=== PATIENT | female | born 1975 | race Caucasian/White ===

== ENCOUNTER → 2018-01-29 | Outpatient (CLI) | payer OTHER ==
--- NOTE | 2018-01-29 16:18 | MAMMOGRAPHY REPORT ---
BILATERAL DIGITAL SCREENING MAMMOGRAM TOMOSYNTHESIS WITH CAD: 01/29/2018 CLINICAL HISTORY: Routine screening. Patient has no complaints. TECHNIQUE: The study was acquired using full field digital technology and interpreted from soft copy. Breast tomosynthesis in addition to standard 2D mammography was performed. Current study was also ev aluated with a Computer Aided Detection (CAD) system. COMPARISON: Comparison is made to exams dated: 11/04/2008 mammogram and 11/02/2008 mammogram. BREAST COMPOSITION: The tissue of both breasts is heterogeneously dense, which may obscure small mass es. FINDINGS: There is a 12 mm focal asymmetry in the approximate 12:00 posterior left breast within the retroglandular fat, was not definitely seen on the 2009 mammogram. Although this could be positional and represent normal fibroglandular tissue, additional spot compression tomosynthesis views and poss ible ultrasound are recommended. There is a possible grouping of calcifications in the 11:00 to 12:0 0 middle one third of the right breast, for which additional spot magnification views are recommended . No other suspicious mass, architectural distortion or cluster of microcalcifications is seen. IMPRESSION: ACR BI-RADS CATEGORY 0: INCOMPLETE EVALUATION: NEED ADDITIONAL IMAGING EVALUATION The 12 mm focal asymmetry in the 12:00 left breast and possible grouping of calcifications in the 11- 12:00 right breast need additional imaging evaluation. The patient will be called to schedule an appointment. Some breast cancers are not detected with mammography. A negative mammographic report should not gary y biopsy if a clinically suggestive mass is present. Tanya Patrick M.D. ay/:01/29/2018 15:25:18 Home Health Caregiver: RT Siddhartha(Leann)(M)(BD), [facility] letter sent: Addl Imaging 0 BI-RADS Code: ACR BI-RADS Category 0: Incomplete Evaluation: Need Additional Imaging Evaluation
== END | disposition home or self-care (01) ==
LOC: C.MAMM 12:25
PROVIDERS: ATTEND Obstetrics & Gynecology
DX: Z12.31 Encounter for screening mammogram for malignant neoplasm of breast (principal); N64.89 Other specified disorders of breast

== ENCOUNTER → 2018-02-07 | Outpatient (CLI) | payer OTHER ==
--- NOTE | 2018-02-07 14:54 | MAMMOGRAPHY REPORT ---
BILATERAL DIGITAL DIAGNOSTIC MAMMOGRAM TOMOSYNTHESIS AND TARGETED LEFT ULTRASOUND: 02/07/2018 CLINICAL HISTORY: Callback from screening mammogram for left breast asymmetry and right breast calcif ications. Family history of breast cancer including her mother who was diagnosed in her late 40s. TECHNIQUE: The study was acquired using full field digital technology and interpreted from soft copy. Breast tomosynthesis in addition to standard 2D mammography was performed. Spot compression left CC and MLO to T and tomosynthesis images and spot magnification right CC and MLO views were obtained. COMPARISON: Comparison is made to exams dated: 01/29/2018 mammogram - [facility], mammogram, and 11/02/2008 mammogram. BREAST COMPOSITION: There are scattered areas of fibroglandular density in both breasts. FINDINGS: Spot magnification views of the right breast demonstrate faint loosely grouped calcifications within the right 12:00 breast. The calcifications are punctate and amorphous on the CC view, and demonstrat e layering on the lateral view consistent with benign milk of calcium. Spot compression views of the left breast demonstrate a persistent 15 mm asymmetry seen within the le ft breast at approximately 12 to 1:00, best seen on the cc view. the asymmetry may have been present on the 2009 exam although there was more fibroglandular tissue seen in this region on the 2009 exam w hich partially obscures the finding therefore it is difficult to confirm stability to the 2009 exam g iven the involutional changes between the current and prior exam. Targeted ultrasound was performed of the left 12 to 1:00 breast in the region of the mammographic asy mmetry. Sonographically normal tissue is seen in this region, without evidence of a mass or other perez spicious sonographic abnormality. Given that the finding may have been present on the 2009 exam, the options of short interval follow-up (in 3-6 months) versus stereotactic biopsy were discussed with t ekta patient. Given that the patient has a family history of breast cancer, I would recommend tissue s ampling to confirm benignity. IMPRESSION: ACR BI-RADS CATEGORY 4: SUSPICIOUS, ULTRASOUND ACR BI-RADS CATEGORY 4: SUSPICIOUS 1. Persistent asymmetry in the left 12 to 1:00 breast, without a suspicious sonographic correlate ev ident. The finding is indeterminate and tomosynthesis stereotactic biopsy is recommended for further evaluation. 2. Grouped calcifications in the right 12:00 breast are compatible with benign milk of calcium. A phone call was made to the physician's office to confirm faxed results were received. The patient has been verbally notified of the results. She tentatively scheduled the biopsy before l eaving the department. Some breast cancers are not detected with mammography. A negative mammographic report should not gary y biopsy if a clinically suggestive mass is present. Marguerite Guerra M.D. ah/:02/07/2018 12:29:22 Fisheries Inspector: RT Kathy(Leann)(M), [facility] letter sent: Abnormal 4/5 OVERALL STUDY BIRADS: 4 Suspicious abnormality
== END | disposition home or self-care (01) ==
LOC: C.MAMM 10:17
PROVIDERS: ATTEND Obstetrics & Gynecology
DX: N64.89 Other specified disorders of breast (principal); R92.1 Mammographic calcification found on diagnostic imaging of breast

== ENCOUNTER → 2018-02-15 | Outpatient (CLI) | payer OTHER ==
--- NOTE | 2018-02-15 10:43 | Discharge Instructions ---
Discharge Instructions Procedure Procedure Date: Feb 15, 2018. Reason for visit: Left Asymm. Discharge Discharge Date: Feb 15, 2018. Discharge Diagnosis: status post breast biopsy Instructions Activity Recommendations: Additional Limitations (see below) Return to School/Work: no limitations Recommended Home Diet: No Limitations Provider Instructions: ACTIVITY RECOMMENDATIONS: * No lifting, pushing, pulling or exercising the affected side for three days. RETURN TO SCHOOL/WORK: * You may return to work/school after the procedure, but do not perform any strenuous activities for 24 to 48 hours. MEDICATIONS: * Tylenol (two 325 mg) every four to six hours if needed for mild pain (if not allergic to Tylenol). DIET: * Resume previous diet. SPECIAL CARE INSTRUCTIONS: * Keep biopsy site dry for 24 hours. May shower after 24 hours, but do not soak (bathe) incision. * May remove Tegaderm (plastic patch) 24 hours after procedure * Leave the steri-strips on for one week. Allow the steri-strips to fall off by themselves. If not off after one week, you may remove them. You may place a Bandaid crosswise over the strips, if desired. * Apply ice 10 minutes on and 10 minutes off as needed. * Wear a bra at bedtime to sleep more comfortably for 2-3 days. * Your referring physician should have the results after approximately 5 to 7 business days. * Call for unusual bleeding, fever, drainage, etc or if you have any questions call during normal business hours or after hours call Dr Guerra, . FOLLOW UP VISIT: Follow-up with Referring Physician as scheduled. Allergies Coded Allergies: No Known Allergies (Verified , 12/05/17) Uncoded Allergies: N (Allergy, Unknown, 12/05/17) NKDA (Allergy, Unknown, 12/05/17) NKFA (Allergy, Unknown, 12/05/17) Lavelle Perkins Recommendations: Call your doctor if: * Temperature above 101 degrees * Pain not relieved by pain medicine ordered * There is increased drainage or redness from any incision * You have any unanswered questions or concerns. Your Doctors Instructions noted above were prepared by provider Marguerite Guerra. Patient Signature Section: Patient Instructions Signature Page Tess Molina Patient (or Guardian) Signature/Date: I have read and understand the instructions given to me by my caregivers. Caregiver/RN/Doctor Signature/Date: The above-named patient and/or guardian has received patient instructions on this date. + Original Patient Signature Page (only) stays with chart. Please make copy for patient.
--- NOTE | 2018-02-15 15:26 | MAMMOGRAPHY REPORT ---
STEREOTACTIC GUIDED BIOPSY LEFT BREAST: 02/15/2018 CLINICAL HISTORY: Asymmetry in the left 12 to 1:00 breast. PATIENT CONSENT: The procedure, risks, benefits, and alternatives of stereotactic biopsy with clip pl acement were discussed with the patient, and verbal and written consent was obtained. A timeout was performed immediately prior to the procedure. PROCEDURE DESCRIPTION: With tomosynthesis stereotactic guidance, aseptic technique, and lidocaine as a local anesthetic (1% lidocaine to anesthetize the skin and 1% lidocaine with epinephrine to anesthe tize the deeper tissues), the asymmetry of concern in the left 12 to 1:00 breast was sampled multiple times with a 9-gauge vacuum-assisted biopsy needle (inZair). The path of approach was cranioca udal. A metallic marker clip was placed at the biopsy site. Postprocedural mammograms were obtained to confirm clip placement. Direct pressure was applied at the biopsy site until hemostasis was achi eved. The patient tolerated the procedure without complication. She was given wound care instructio ns. COMPARISON: Comparison is made to exams dated: 02/07/2018 ultrasound, 02/07/2018 mammogram, 01/29/2018 ma mmogram - [facility], 11/04/2008 mammogram, and 11/02/2008 mammogram. IMPRESSION: STEREOTACTIC GUIDED BIOPSY Tomosynthesis stereotactic guided biopsy of asymmetry within the left breast at approximately 12 to 1 :00, with clip placement. The patient will receive pathology results from her referring provider. Marguerite Guerra M.D. ah/:02/15/2018 10:58:48 Recovery Operator Helper: RT Julia(R)(M), [facility]
--- NOTE | 2018-02-15 15:26 | MAMMOGRAPHY REPORT ---
UNILATERAL LEFT DIGITAL DIAGNOSTIC MAMMOGRAM TOMOSYNTHESIS: 02/15/2018 CLINICAL HISTORY: Status post left breast stereotactic biopsy. TECHNIQUE: The study was acquired using full field digital technology and interpreted from soft copy. Breast tomosynthesis in addition to standard 2D mammography was performed. Postprocedural left CC a nd MLO 2D and tomosynthesis images were obtained. COMPARISON: Comparison is made to exams dated: 02/07/2018 mammogram and 01/29/2018 mammogram - [facility]. BREAST COMPOSITION: There are scattered areas of fibroglandular density in left breast. FINDINGS: A new biopsy marker clip is seen at the site of the biopsied asymmetry in the left superior breast at approximately 12 to 12:30. No significant postbiopsy hematoma is seen. IMPRESSION: POST PROCEDURE IMAGING FOR MARKER PLACEMENT New biopsy marker clip status post left breast stereotactic biopsy. Pathology results are pending. Some breast cancers are not detected with mammography. A negative mammographic report should not gary y biopsy if a clinically suggestive mass is present. Marguerite Guerra M.D. ah/:02/15/2018 11:00:35 Amalgamator: RT Julia(R)(M), [facility] BI-RADS Code: Post Procedure Imaging For Marker Placement
== END | disposition home or self-care (01) ==
LOC: C.MAMM 09:54
PROVIDERS: ATTEND Obstetrics & Gynecology
DX: R92.8 Other abnormal and inconclusive findings on diagnostic imaging of breast (principal)